=== PATIENT | female | born 1975 | race Caucasian/White ===

== ENCOUNTER 2016-12-01 15:12 | Emergency (ER) | payer MEDICAID ==
[~2016-12-01] VITALS: Ht 149.9 cm; Wt 101.6 kg
[2016-12-01 17:07] LABS: CALCIUM 8.8 mg/dL (8.5-10.1); CARBON DIOXIDE 33.3 mmol/L (21-32); CHLORIDE SERUM 103 mmol/L (98-107); CREATININE SERUM 0.7 mg/dL (0.6-1.0); GFR1 > 60 mL/min; GLUCOSE SERUM 97 mg/dL (74-106); POTASSIUM SERUM 3.6 mmol/L (3.5-5.1); SODIUM SERUM 139 mmol/L (136-145)
[2016-12-01 17:11] LABS: ALKALINE PHOSPHATASE 84 U/L (46-116); ALT/SGPT 44 U/L (14-59); AMYLASE 55 U/L (25-115); AST/SGOT 16 U/L (15-37); BILIRUBIN TOTAL 0.3 mg/dL (0.20-1.00); LIPASE 167 IU/L (73-393); TOTAL PROTEIN, SERUM 7.2 g/dL (6.4-8.2)
[2016-12-01 17:14] LABS: ALBUMIN 3.2 g/dL (3.4-5.0)
[2016-12-01 17:24] LABS: BASOPHIL % 0.4 % (0-2); PLATELET COUNT 339 x10^3mcL (130-400)
[2016-12-01 17:27] LABS: RED CELL DISTRIBUTION WIDTH 14.9 % (11.5-14.5)
[2016-12-01 18:42] VITALS: BP 138/81
== END 2016-12-01 18:42 | disposition home or self-care (01) ==
LOC: ED 15:12
PROVIDERS: Emergency Medicine
DX: R10.11 Right upper quadrant pain (principal); K21.9 Gastro-esophageal reflux disease without esophagitis
CPT/HCPCS: J1170; J1885; Q0162

== ENCOUNTER 2017-03-18 10:16 | Emergency (ER) | payer MEDICAID ==
[~2017-03-18] VITALS: Ht 149.9 cm; Wt 100.0 kg
[2017-03-18 11:16] LABS: BASOPHIL % 0.5 % (0-2); PLATELET COUNT 366 x10^3mcL (130-400)
[2017-03-18 11:17] LABS: RED CELL DISTRIBUTION WIDTH 14.8 % (11.5-14.5)
[2017-03-18 12:03] LABS: CALCIUM 8.6 mg/dL (8.5-10.1); CARBON DIOXIDE 27.4 mmol/L (21-32); CHLORIDE SERUM 105 mmol/L (98-107); CREATININE SERUM 0.7 mg/dL (0.6-1.0); GFR1 > 60 mL/min; GLUCOSE SERUM 99 mg/dL (74-106); SODIUM SERUM 140 mmol/L (136-145)
[2017-03-18 12:08] LABS: ALKALINE PHOSPHATASE 81 U/L (46-116); ALT/SGPT 25 U/L (14-59); AMYLASE 40 U/L (25-115); AST/SGOT 14 U/L (15-37); BILIRUBIN TOTAL 0.35 mg/dL (0.20-1.00); LIPASE 154 IU/L (73-393); TOTAL PROTEIN, SERUM 7.6 g/dL (6.4-8.2)
[2017-03-18 12:17] LABS: ALBUMIN 3.2 g/dL (3.4-5.0)
[2017-03-18 13:12] VITALS: BP 120/93
== END 2017-03-18 13:12 | disposition home or self-care (01) ==
LOC: ED 10:16
PROVIDERS: Emergency Medicine
DX: K80.20 Calculus of gallbladder without cholecystitis without obstruction (principal); K21.9 Gastro-esophageal reflux disease without esophagitis; Z79.891 Long term (current) use of opiate analgesic; Z79.899 Other long term (current) drug therapy
CPT/HCPCS: 83880; J2270; J2405; J7030